=== PATIENT | female | born 1945 | race Caucasian/White ===

== ENCOUNTER 2017-07-24 01:56 | Inpatient (IN) | payer OTHER, MEDICARE ==
[~2017-07-24] VITALS: Ht 157.5 cm; Wt 85.7 kg
[2017-07-24] VITALS (10 sets, daily range): BP systolic 130–157; BP diastolic 68–80; PULSE 75–88; RESP 16–20; O2SAT 96–97
[~2017-07-24 01:56] MED LIST: ASPI325T32 PO; FLUT15.88 NS; LISI-571 PO; METF1000 PO; METO50TA3 PO
--- NOTE | 2017-07-24 02:02 | ED.REPORT ---
HPI-Abd Pain F 40 and Over Date of Service Jul 24, 2017 ED Provider: Anderson Chapman MD A 71 year old female with a history of diverticulitis, hypertension, diabetes and anxiety presents to the ED complaining of abdominal pain. The pain began this evening while the pt was resting, and is localized in the left lower abdomen. This is accompanied by nausea and diarrhea, though the pt denies fever. The pt believes that her symptoms may be related to diverticulitis. Nursing Notes Stated Complaint: STOMACH PAIN Nursing Notes Reviewed: Yes Scheduled Aspirin (Aspirin) 325 Mg Tablet 325 MG PO DAILY Lisinopril (Lisinopril) 5 Mg Tablet 5 MG PO DAILY Metformin (Glucophage) 1,000 Mg Tablet 1,000 MG PO BID Metoprolol Tartrate (Metoprolol Tartrate) 50 Mg Tablet 25 MG PO BID Miscellaneous Medications Fluticasone Propionate (Fluticasone Propionate) 50 Mcg/Actuation Harris.susp 15.8 ML NS General Time Seen by MD: 02:01 Chief Complaint Abdominal pain Hx Obtained From: Patient Arrived By: Walk-in Sudden in Onset?: Yes Onset Occurred: 5 - 8 hours ago Symptom Duration: Since onset Recent Healthcare: No recent hospitalization, Recent doctor visit Similar Sx Previous: Yes Past Medical History Past Medical History cataracts hypertension diverticulitis diabetes anxiety Past Surgical History none reported Smoking History Smoker Current Status UNK Social History Alcohol Use: Denies alcohol use Drug Use: Denies drug use Other Social History: Good social support, Ambulatory Status Independent Review of Systems Constitutional: Denies: Fever Respiratory: Denies: Non-productive cough, Shortness of breath Cardiovascular: Denies: Chest pain GI: Reports: Abdominal pain, Diarrhea, Nausea Musculoskeletal: Denies: Back pain, Neck pain Complete sys rev & neg: except as marked. Physical Exam Vital Signs Vital Signs (First) Date Time Temp Pulse Resp B/P Pulse Ox O2 Delivery O2 Flow Rate FiO2 07/24/17 02:07 37.4 87 20 152/74 97 Room Air Initial VS: Reviewed General/Constitutional: Awake, Alert Respiratory / Chest: Atraumatic, Breath sounds NL, Breath sounds = bilat, No respiratory distress Cardiovascular: Heart rate NL, Regular rhythm, Heart sounds NL Abdomen: Atraumatic, Soft tender LLQ Back: Atraumatic, Full range of motion Head / Eyes: Atraumatic, Normocephalic, PERRL, EOMI ENT: Atraumatic, Airway patent, Mucous membranes moist, Pharynx NL Skin: Atraumatic, Color NL, No rash, Warm, Dry Neurologic: Oriented X3, Speech NL, No motor deficits, No sensory deficits Neck: Atraumatic, Supple, Full range of motion Upper Extremity / MS: Atraumatic, Full range of motion Lower Extremity / Pelvis / MS: Atraumatic, Full range of motion Psychiatric: Affect NL, Mood NL Interpretation & Diagnostics Lab Results Interpretation Result Diagram: 07/24/17 0231 07/24/17 0231 Test 07/24/17 02:31 07/24/17 05:25 White Blood Count 10.1th/mm3 (3.8-10.1) Red Blood Count 4.19mil/mm3 (3.90-5.20) Hemoglobin 11.2g/dL (12.0-15.6) Hematocrit 35.5% (35.0-46.0) Mean Corpuscular Volume 84.7fL (81-100) Mean Corpuscular Hemoglobin 26.7pg (27.0-35.0) Mean Corpuscular Hemoglobin Concent 31.5% (32.0-37.0) Red Cell Distribution Width 15.2% (12.3-15.4) Platelet Count 181bil/L (150-400) Neutrophils (%) (Auto) 82.4% (40-74) Lymphocytes (%) (Auto) 9.2% (14-46) Monocytes (%) (Auto) 6.5% (4-12) Eosinophils (%) (Auto) 1.5% (0-5) Basophils (%) (Auto) 0.1% (0-3) Prothrombin Time 10.3sec (8.1-12.5) Prothromb Time International Ratio 0.96ratio Sodium Level 137mEq/L (134-144) Potassium Level 4.0mEq/L (3.5-5.2) Chloride Level 100mEq/L (97-108) Carbon Dioxide Level 21mmol/L (18-29) Blood Urea Nitrogen 13mg/dL (8-27) Creatinine 0.65mg/dL (0.57-1.00) Estimat Glomerular Filtration Rate 129mL/min (>59) Glucose Level 160mg/dL (60-99) Calcium Level 8.9mg/dL (8.5-10.1) Magnesium Level 1.9mg/dL (1.6-2.6) Total Bilirubin 0.7mg/dL (0.0-1.2) Aspartate Amino Transf (AST/SGOT) 15U/L (0-50) Alanine Aminotransferase (ALT/SGPT) 9U/L (0-32) Alkaline Phosphatase 70U/L (25-165) Total Protein 7.1g/dL (6.4-8.4) Albumin 4.2g/dL (3.4-5.0) Lipase 25U/L (13-60) Urine Color Yellow (YELLOW) Urine Appearance Clear (CLEAR,HAZY) Urine pH 5.0 (5.0-8.0) Urine Specific [place] <1.005 (1.003-1.035) Urine Protein Negativemg/dL (NEG,TRACE) Urine Glucose (UA) Negativemg/dL (NEGATIVE) Urine Ketones Negativemg/dL (NEGATIVE) Urine Occult Blood Trace (NEGATIVE) Urine Nitrite Negative (NEGATIVE) Urine Bilirubin Negative (NEGATIVE) Urine Urobilinogen Normalmg/dL (NORMAL) Urine Leukocyte Esterase Negative (NEGATIVE) Urine RBC 0-2/hpf (0-2) Urine WBC 0-5/hpf (0-5) Urine Epithelial Cells Few/hpf (NONE-MOD) Urine Crystals None seen (NONE SEEN) Urine Bacteria Few/hpf (NONE-FEW) Urine Hyaline Casts None/lpf (NONE) Urine Granular Casts None seen (NONE SEEN) Urine Waxy Casts None seen (NONE SEEN) Urine Red Blood Cell Casts None seen (NONE SEEN) Urine White Blood Cell Casts None seen (NONE SEEN) Urine Mucus None seen (None Seen) Urine Trichomonas None seen (NONE SEEN) Urine Yeast None (NONE SEEN) Urinalysis Comment None Urine Culture Reflexed Not indicated CT Abd / Pelvis Interpretation IMPRESSION: Acute sigmoid diverticulitis. No gross free air or loculated fluid collection/mature abscess. Follow-up recommended to ensure resolution and exclude underlying neoplasm. Other findings above. Interpretation / Wet Read by: Interpret - Radiologist Re-Eval/Medical Decision Med Decision/Clinical Course 8-year-old presents with diverticulitis correctly assessed by her his diverticulitis based on its similarity to prior occurrences. Antecedent diarrhea but no other significant symptoms. CT scanning shows fluid, one small bubble that may represent a microperforation, and stranding all consistent with diverticulitis and sigmoid colon. Begun with Levaquin and metronidazole IV. Admitted now for ongoing antibiotics and observation. Source of Hx: Old records Re-Evaluation/Progress : Time of Eval: 04:25 Patient Status: Condition improved Re-Evaluation/Progress Note: Pt rechecked, who is comfortable. The diagnosis and plan for admission are discussed. The pt understands and agrees with the plan. All questions are addressed at this time. Consultation : Referral / Consult Name: Michell Cruz DO Consulted With: Hospitalist Call Returned at: 04:34 Order Editor: Agrees with eval, Agrees with plan, Accepts admit Note: Spoke with Dr. Cruz, hospitalist, regarding pt's case. Dr. Cruz agrees with the evaluation and agrees to admit the pt. Counseled Regarding: Diagnosis, Lab results, Need for admission Discharge & Departure Primary Impression: Sigmoid diverticulitis Disposition: ADMITTED TO HOSPITAL Discharge Condition All VS Reviewed: Yes Condition: Stable Referrals: Belkys Muniz (PCP) Scribe Attestation Portions of this note were transcribed by Kaylah Osuna. I, Dr. Chapman personally performed the history, physical exam and medical decision-making; I reviewed and confirmed the accuracy of the information in the transcribed note. copies to: Belkys Muniz Christopher W MD Jul 24, 2017 02:02 KAYLAH OSUNA Jul 24, 2017 02:28
[2017-07-24] MEDS ORDERED: 0.9% Sodium Chloride 1,000 ML IV ONE (02:26)
[2017-07-24] MEDS ORDERED: Ketorolac 15 mg/mL Inj IVPUSH ONE (02:30)
[2017-07-24] MEDS ORDERED: HYDROmorphone 1 mg/mL Inj IVPUSH PRN (02:30)
[2017-07-24] MEDS ORDERED: Ondansetron 2 mg/mL 2 mL Inj IVPUSH ONE (02:30)
[2017-07-24 02:39] LABS: BASOPHILS % (AUTO) 0.1 % (0-3); EOSINOPHILS % (AUTO) 1.5 % (0-5); MONOCYTES % (AUTO) 6.5 % (4-12); Mean Corpuscular Hemoglobin 26.7 pg (27.0-35.0); Mean Corpuscular Volume 84.7 fL (81-100); NEUTROPHILS % (AUTO) 82.4 % (40-74); Platelet Count 181 bil/L (150-400)
[2017-07-24 03:02] LABS: INR 0.96 ratio
[2017-07-24 03:13] LABS: Magnesium 1.9 mg/dL (1.6-2.6)
[2017-07-24] MEDS ORDERED: levoFLOXacin Inj 750 MG in IV Premix 1 EACH IV ONE (04:05)
[2017-07-24] MEDS ORDERED: metroNIDAZOLE Inj 1,000 MG in IV Premix 1 EACH IV ONE (04:05)
[2017-07-24] MEDS ORDERED: Alum-Mag Hydrox-Simeth 30 mL Suspension PO PRN (04:40)
[2017-07-24] MEDS ORDERED: Polyethylene Glycol (PEG) 17 Gm Powder PO PRN (04:40)
--- NOTE | 2017-07-24 05:26 | PCM.HPMED ---
Subjective Date of Service Jul 24, 2017 Primary Provider: Admitting Physician: Primary Care Physician: Belkys Muniz Attending Physician: Admit Status: From the Emergency Department, Remote Telemetry Chief Complaint: Left lower quadrant abdominal pain with associated diarrhea and nausea History of Present Illness: Mrs. Ellis is extremely pleasant 71-year-old woman with history of non-insulin- dependent using diabetes mellitus, hypertension, mitral valve prolapse status post repair, history of diverticulitis, that presented to the emergency department with a new onset of left lower quadrant abdominal pain, with associated nausea, and diarrhea. Initial evaluation in the emergency department included CT imaging which revealed acute sigmoid diverticulitis without any gross free air or loculated fluid collection or mature abscesses. Patient was properly treated with IV antibiotics, patient is admitted for continued evaluation and treatment of acute diverticulitis. - Hospital day 1 Patient states that left lower quadrant pain, described as sharp and constant, began approximately 9 PM the day prior to admission. She believes the etiology of her underlying pain may be related to a [place] dish she had for dinner. She also attributes some associated nausea and diarrheal episodes. She states 3 episodes of diarrhea, which she utilized [id number] antidiarrheal medicines for each episode. She denies any associated fever, chills, acute vision changes, headaches, emesis. Denies noting any blood within her stools, but patient admits that she was not closely observing her output. She also notes a dry mouth since development of her diarrhea and left lower quadrant pain. In the emergency department, T 37.4, pulse 87, respiratory rate 20, blood pressure 152/74, 97% on room air; initial labs revealed white count 10.1 with 82.4% neutrophils, hemoglobin 11.2, hematocrit 35.5, platelet count 181; electrolytes within range, LFTs within range, lipase 25. CT of the abdomen and pelvis was completed, which revealed acute sigmoid diverticulitis without any gross free air or loculated fluid collections or mature abscesses. Dr. Rivera of general surgery was attending to another patient in the emergency department and recommended consultation in morning for this woman. Initial therapies included 1 L normal saline, Toradol 15 mg IV push 1, Flagyl 1 g, and Levaquin 750 mg. Patient was transported to medical floor in stable condition. Review of Systems: Complete review of systems obtained, pertinent positives and negatives as noted in history of present illness Home Medications Obtained from outpatient documentation dated 07/03/2017 Celia Ellis. [id number] 1945 07/03/2017 10:00 AM 11/30 Start Date Medication Directions 06/14/2014 aspirin 325 mg tablet,delayed release take 1 tablet by oral route every day 04/18/2016 Contour Test Strips inject by Subcutaneous route three times daily test blood sugar 09/21/2016 fluticasone 50 mcg/actuation nasal spray,suspension PLACE TWO SPRAYS IN EACH NOSTRIL ONCE DAILY NEEDED 03/30/2016 lancets 30 gauge use to test blood sugar twice daily 09/18/2016 lisinopril 5 mg tablet take 1 tablet by oral route every day for heart 04/16/2017 metFORMIN HCL 1,000MG TABLET, UU TAKE ONE TABLET BY MOUTH TWICE A DAY WITH MORNING AND EVENING MEALS 09/18/2016 metoprolol tartrate 50 mg tablet take 0.5 tablet by oral route 2 times every day with meals Patient was able to confirm daily medications of aspirin, blood pressure medication presumed to be lisinopril, metformin, metoprolol PMH Diabetes Dyslipidemia Hypertension Palpitations Cardiac murmur status post mitral valve prolapse with mitral valve repair Diabetes mellitus non-insulin using with polyneuropathy Diverticulitis Vitamin D deficiency Surgical History Tonsillectomy section 2 Adenoidectomy Unilateral oophorectomy Mitral valve repair, open Patient reports intact appendix Family History Patient reports family history of mitral valve disease in brother, coronary artery disease in father, renal insufficiency and mother, congestive heart failure and sister, and cardiac arrest in son Social History Hx Alcohol Use: No Hx Substance Use: No Hx Tobacco Use: No Smoking Status: Never Smoker Living Arrangement: with Family (, local) Exam Vital Signs Vital Sign - Last Date Time Temp Pulse Resp B/P Pulse Ox O2 Delivery O2 Flow Rate FiO2 07/24/17 04:30 88 20 130/77 97 Room Air 07/24/17 02:07 37.4 Exam General: Alert and oriented 3; pleasant woman resting supine in bed in no acute distress HEENT: Atraumatic, normocephalic, sclera anicteric, membranes moist Neck: Full range of motion without pain Cardiac: Regular rate and rhythm at time of examination with II/ systolic murmur Respiratory: Equal and adequate airflow all blandon without any wheeze or rhonchi ; no use of accessory muscles Chest: Atraumatic without any reproducible pain with palpation Abdomen: Soft, obese, mild-moderate tenderness noted left lower quadrant, with mild diffuse abdominal pain Extremities: No edema appreciated Skin: Warm and dry MSK: 5/5 strength 4/4 extremities at major joints of the shoulder, hip Neuro: Cranial nerves II-XII grossly intact, speech without slur, facial expressions equal and symmetric Psych: Appropriate mood, affect, and responses to questions; good insight and judgment Lab and Diagnostics Result Diagram: 07/24/1723007/24/17230 Assessment & Plan Mrs. Ellis is extremely pleasant 71-year-old woman with history of non-insulin- dependent using diabetes mellitus, hypertension, mitral valve prolapse status post repair, history of diverticulitis, that presented to the emergency department with a new onset of left lower quadrant abdominal pain, with associated nausea, and diarrhea. Initial evaluation in the emergency department included CT imaging which revealed acute sigmoid diverticulitis without any gross free air or loculated fluid collection or mature abscesses. Patient was properly treated with IV antibiotics, patient is admitted for continued evaluation and treatment of acute diverticulitis. - Hospital day 1 Acute sigmoid diverticulitis, present on admission, under therapy - Patient complains of left lower quadrant pain similar to previous presentations of diverticulitis episodes - CT obtained in emergency department revealed acute sigmoid diverticulitis without free air or loculated fluid or abscesses - Awaiting final read - Patient without white count or fever on admission - Initial antibiotics included Flagyl and Levaquin, will continue; please note patient has allergy to penicillin - Continue to monitor labs and vitals - Nothing by mouth except sips and chips to provide bowel rest - Patient was not experiencing severe symptoms to indicate placement of NG tube - Gen. surgery consultation in morning, order has been placed - Please verbally contact surgical team to formally consult on this patient Diabetes mellitus, non-insulin using, chronic, presumed stable - We will hold metformin - Institution of low-dose correctional scale Hypertension, chronic, presumed stable - We will resume home medications including lisinopril and metoprolol when med rec completed pending stability of blood pressure Mitral valve regurgitation status post open repair, chronic, presumed stable - No interventions at this time; followed by [facility] cardiology Med rec not uploaded or completed at time of admission PRN fever, bowel, nausea, pain DVT: Hep q8 Diet: NPO exc sips at this time to promote bowel rest GI: H2B IVF: NS 100 Code: FULL CODE Patient status: Patient is admitted under inpatient status with expected length of stay greater than 2 midnights due to severity of presenting symptoms, risk of adverse event, and complexity of treatment plan. Pain Evaluation: Adequate Pain Control GI Prophylaxis: H2 edgardo VTE Prophylaxis: Sub-Q Heparin (Unfractionated) Resuscitation Status: CPR: Attempt Resuscitation Attending Statement The patient was seen and examined together with house staff on 07/24/2017 and I agree with the history, exam and plan as outlined in the note above. copies to: Belkys Muniz Lindsay R DO Jul 24, 2017 05:26 Michell Cruz DO Jul 24, 2017 06:19
[2017-07-24] MEDS ORDERED: Glucose 40% Oral Gel 15 Gm Tube PO PRN (05:45)
[2017-07-24] MEDS ORDERED: Dextrose 10% 250 ML IV PRN (05:50)
[2017-07-24 05:52] LABS: APPEARANCE,URINE CLEAR (CLEAR,HAZY); COLOR,URINE YELLOW (YELLOW); OCCULT BLOOD,URINE TRACE (NEGATIVE); UROBILINOGEN,URINE NORMAL (NORMAL)
[2017-07-24] MEDS: 0.9% Sodium Chloride 1,000 ML IV SCH ×2 (06:16→17:02)
--- NOTE | 2017-07-24 06:32 | NUR ---
ADMIT Report received from Elidia in ED. Pt arrived in room 1012 at 0541 via gurney. Pt scooted self from gurney to bed with minimal assistance. Per RN, bag 2/2 of flagyl running in l. AC, positional per pt. Admission complete, med rec complete per pt's memory, though she reports she is a poor historian. Pt recommends faxing PCP office for complete list.
[2017-07-24] MEDS: Insulin LISPRO 300 Unit/3 mL Inj SUBQ SCH ×4 (08:00→22:00)
[2017-07-24] MEDS: Famotidine Inj 20 MG in IV Premix 1 EACH IV SCH ×2 (08:28→20:17)
[2017-07-24] MEDS: Heparin 5,000 Unit/mL Inj SUBQ SCH ×2 (08:29→17:09)
[2017-07-24] MEDS: Ondansetron 2 mg/mL 2 mL Inj IVPUSH PRN (08:31)
--- NOTE | 2017-07-24 09:05 | DRSVH ---
PROCEDURE: CT ABDOMEN AND PELVIS WITH CONTRAST ([id number]) INDICATIONS: llq pain TECHNIQUE: After the administration of intravenous contrast, 5 mm thick sections acquired from the diaphragm to the symphysis. 5 mm coronal and sagittal reformats were acquired. For radiation dose reduction, the following was used: automated exposure control, adjustment of mA and/or kV according to patient siz e. COMPARISON: [facility] [place] , CT, ABD/PELVIS W/CON ([facility]), 05/21/2011, 10:48. FINDINGS: Image quality: Excellent. ABDOMEN: Lung bases: Lung bases are clear. Heart size is normal. Solid organs: Liver and spleen are normal in size and enhancement. Gallbladder demonstrates minimal dependent hyperdensity is noted without wall thickening. Biliary system is non dilated. Pancreas e nhances normally. No adrenal nodules. Kidneys demonstrate normal size and enhancement, without hydr onephrosis. Renal cysts are noted. Peritoneum and bowel: Bowel loops are nonobstructed. There is significant thickening within the desc ending and sigmoid colon with associated inflammatory change. No free air is identified. No abscess. There are scattered sub-centimeters lymph nodes adjacent to the inflamed colon, suspected to be react ionary in nature. Nodes and vessels: No retroperitoneal or mesenteric adenopathy by size criteria. Aorta and inferior vena cava are normal in size. Miscellaneous: No ventral hernias. PELVIS: Genitourinary: Bladder wall thickness is normal. Miscellaneous: No inguinal hernias or adenopathy. Bones: No suspicious bony lesions. No vertebral body compression fractures. L2 hemangioma is noted . IMPRESSION: 1. Significant descending and sigmoid colonic thickening with inflammatory change and diverticula. Ov erall appearance is most suggestive of colitis secondary to diverticulitis. However, recommend interv al followup after appropriate therapy to document resolution and exclude presence of underlying mass lesion. Dictated by: Mary Jo Delacruz M.D. on 07/24/2017 at 8:53 Approved by: Mary Jo Delacruz M.D. on 07/24/2017 at 9:04
[2017-07-24] MEDS ORDERED: LOPE2CAP PO (10:51)
[2017-07-24] MEDS: metroNIDAZOLE Inj 500 MG in IV Premix 1 EACH IV SCH ×2 (13:06→22:11)
--- NOTE | 2017-07-24 16:23 | PCM.PNMED ---
Subjective Date of Service Jul 24, 2017 Subjective Patient is in the chair, complaining of lower abdominal pain, intermittent loose bowel movements. Pain is improving. Exam Vital Signs Vital Sign - Last Date Time Temp Pulse Resp B/P Pulse Ox O2 Delivery O2 Flow Rate FiO2 07/24/17 12:15 36.4 77 16 139/77 96 Room Air Exam PHYSICAL EXAM: GENERAL: Alert, not in distress, cooperative HEAD: atraumatic, normocephalic, no bruises. EYES: PRIETO, EOMI, anicteric, able to fully open and close eyelids SKIN: Skin color normal, turgor normal. No visible rashes or lesions. EAR, NOSE, MOUTH, THROAT: Lips, oral mucosa, tongue gums, oropharynx are moist , pink, no lesions. Ears normal appearance, no lesions. NECK: no jugulovenous distention, no carotid bruits, carotid pulse normal contour, No carotid bruit, no enlarged lymph nodes appreciated; supple ROM normal. RESPIRATORY: Lungs clear to auscultation. Good diaphragmatic excursion. Normal percussion sound. CARDIAC: normal S1 and S2; no rubs, murmurs, or gallops; regular rate and rhythm ABDOMEN: Abdomen soft, tender. BS normal. No masses or organomegaly. MUSCULOSKELETAL: ROM full, muscles are not tender EXTREMITIES: no pitting edema in LE, no new deformities or skin discoloration. NEURO: Alert, oriented X 3, Sensation grossly intact., Cranial nerves II-XII intact, Grossly normal motor function. PULSES: 2+ radial, 2+ carotid REVIEW OF SYSTEMS: GENERAL: no malaise, no fevers., SEE HPI HEENT: Negative for frequent or significant headaches All other reviewed and negative other than HPI. IVs and Medications Medications Reviewed: Medications were reviewed in detail Lab and Diagnostics Result Diagram: 07/24/17 0231 07/24/17 0231 X-Rays, CTs and MRIs CT abdomen 1. Significant descending and sigmoid colonic thickening with inflammatory change and diverticula. Overall appearance is most suggestive of colitis secondary to diverticulitis. However, recommend interval followup after appropriate therapy to document resolution and exclude presence of underlying mass lesion. Assessment & Plan Mrs. Ellis is extremely pleasant 71-year-old woman with history of non-insulin- dependent using diabetes mellitus, hypertension, mitral valve prolapse status post repair, history of diverticulitis, that presented to the emergency department with a new onset of left lower quadrant abdominal pain, with associated nausea, and diarrhea. Initial evaluation in the emergency department included CT imaging which revealed acute sigmoid diverticulitis without any gross free air or loculated fluid collection or mature abscesses. Patient was properly treated with IV antibiotics, patient is admitted for continued evaluation and treatment of acute diverticulitis. Acute sigmoid diverticulitis, present on admission, under therapy - Improving - CT showed acute diverticulitis - Continue with current antibiotics Diabetes mellitus - stable - ISS, Accu-Cheks, Hypertension, - stable - c/w home meds Mitral valve regurgitation status post open repair, chronic, presumed stable - stable,followed by [facility] cardiology PRN fever, bowel, nausea, pain DVT: Heparin Diet: NPO exc sips at this time to promote bowel rest GI: H2B IVF: NS 100 Code: FULL CODE GI Prophylaxis: H2 edgardo VTE Prophylaxis: Sub-Q Heparin (Unfractionated) VTE Mechanical Devices: Intermittant Pneumatic CD Resuscitation Status: CPR: Attempt Resuscitation Benoit Umaña MD Jul 24, 2017 16:23
--- NOTE | 2017-07-24 16:51 | NUR ---
Social Work: Initial Assessment/Multidisciplinary Rounds D: EMR reviewed. Please see Initial Assessment linked to this note for more information. Pt is a 71 year old female admitted [place] for acute diverticulitis per H&P. Pt's insurance is [facility]. Pt screens in for an assessment due to age. PCP is DAISY Cunningham. Pt discussed in multidisciplinary rounds, no social work needs identified. SW will continue to follow. SW met with pt and at bedside to conduct initial assessment. Pt was alert and oriented x3. Pt is very hard of hearing and pt's assisted with answering assessment questions. Pt's capacity for self-care assessed. SW explained role and wrote phone number on [employer] board. SW provided [facility] Discharge Planning Checklist and encouraged pt to contact SW for any discharge planning questions. Pt lives at home with her spouse in [place]. Pt is independent with all ADLs. Pt uses no DME at baseline but has a cane and walker available for use. Pt does not drive. Pt has no HH or SNF history, no LTC or VA benefits. Pt has no DPOA on file, pt reports that her would be DPOA if needed. Pt's to provide transportation home at d/c. SW will continue to follow for d/c planning needs. A: Pt who is independent at baseline and has the capacity for self-care. P: Pt anticipated to discharge home with to transport via POV. No SW needs identified, no MD orders received at this time. SW will continue to follow for needs until time of discharge. BECCA Munoz Addendum: 07/24/17 at 1655 by KAYLA CORTEZ Amended: Links added.
--- NOTE | 2017-07-24 17:33 | NUR ---
Case Management: IMM explained to patient and family member at 1525, all questions answered. Signed original placed in chart, copy given to patient. Alena Gardner RN
--- NOTE | 2017-07-24 18:48 | NUR ---
Shift Note Patient diet changed to clear liquids as tolerated to rest bowels. Antibiotics administered as ordered. Patient anxious about getting Heparin, educated on need for prevention of DVT and reassured patient that it doesn't stay in her system very long. Patient agreeable. Patient complains of headache after dinner, dimmed lights offered Tylenol, patient preferred ice pack. Will continue to monitor.
[2017-07-25] VITALS (8 sets, daily range): BP systolic 136–149; BP diastolic 70–82; PULSE 70–76; RESP 16–22; O2SAT 93–96
[2017-07-25] MEDS: Heparin 5,000 Unit/mL Inj SUBQ SCH ×3 (01:16→17:25)
[2017-07-25] MEDS: 0.9% Sodium Chloride 1,000 ML IV SCH ×3 (04:19→21:45)
[2017-07-25] MEDS: levoFLOXacin Inj 750 MG in IV Premix 1 EACH IV SCH (04:23)
[2017-07-25] MEDS: metroNIDAZOLE Inj 500 MG in IV Premix 1 EACH IV SCH ×3 (06:37→22:57)
[2017-07-25] MEDS: Ondansetron 2 mg/mL 2 mL Inj IVPUSH PRN (06:42)
[2017-07-25] MEDS: Insulin LISPRO 300 Unit/3 mL Inj SUBQ SCH ×4 (08:00→22:00)
[2017-07-25] MEDS: Famotidine Inj 20 MG in IV Premix 1 EACH IV SCH ×2 (08:44→21:36)
--- NOTE | 2017-07-25 10:40 | PCM.PNMED ---
Subjective Date of Service Jul 25, 2017 Subjective Patient is complaining of lower abdominal pain. She is able to tolerate a liquid diet. Her stomach is quite painful to palpation. CT scan showed severe diverticulitis. Patient is an IV antibiotics. We will advance her diet today and see if she is able to tolerate it. Probably will be able to discharge her home on oral antibiotics tomorrow Exam Vital Signs Vital Sign - Last Date Time Temp Pulse Resp B/P Pulse Ox O2 Delivery O2 Flow Rate FiO2 07/25/17 07:54 36.7 73 20 136/73 95 Room Air Intake and Output 07/24/17 07/24/17 07/25/17 Cumulative From/Thru 15:00 23:00 07:00 07/24/17 02:07 - 07/24/17 17:41 Intake Total 0 ml 720 ml 720 ml Output Total 0 ml 800 ml 800 ml Balance 0 ml -80 ml -80 ml Intake Oral 0 ml 720 ml 720 ml Output Urine Total 0 ml 800 ml 800 ml # Voids 3 3 # Bowel Movements 0 0 Exam PHYSICAL EXAM: GENERAL: Alert, not in distress HEAD: atraumatic, normocephalic, no bruises. EYES:EOMI, anicteric, able to fully open and close eyelids SKIN: Skin color normal, turgor normal. No visible rashes or lesions. EAR, NOSE, MOUTH, THROAT: Lips, oral mucosa, tongue are moist, pink, no lesions. NECK: no jugulovenous distention, no carotid bruits, carotid pulse normal contour, No carotid bruit, no enlarged lymph nodes appreciated; supple ROM normal. RESPIRATORY: Lungs clear to auscultation. Good diaphragmatic excursion. Normal percussion sound. CARDIAC: normal S1 and S2; no rubs, murmurs, or gallops; regular rate and rhythm ABDOMEN: Abdomen soft, tender to palpation in lower abdomen. BS normal. No masses or organomegaly. MUSCULOSKELETAL: ROM full, muscles are not tender EXTREMITIES: no pitting edema in LE, no new deformities or skin discoloration. NEURO: Alert, oriented X 3, Sensation grossly intact., Cranial nerves II-XII intact, Grossly normal motor function. PULSES: 2+ radial, 2+ carotid REVIEW OF SYSTEMS: GENERAL: + malaise, no fevers., SEE HPI HEENT: Negative for frequent or significant headaches All other reviewed and negative other than HPI. IVs and Medications Medications Reviewed: Medications were reviewed in detail Lab and Diagnostics Result Diagram: 07/24/17 02307/24/17 0231 X-Rays, CTs and MRIs CT abdomen 1. Significant descending and sigmoid colonic thickening with inflammatory change and diverticula. Overall appearance is most suggestive of colitis secondary to diverticulitis. However, recommend interval followup after appropriate therapy to document resolution and exclude presence of underlying mass lesion. Assessment & Plan Mrs. Ellis is extremely pleasant 71-year-old woman with history of non-insulin- dependent using diabetes mellitus, hypertension, mitral valve prolapse status post repair, history of diverticulitis, that presented to the emergency department with a new onset of left lower quadrant abdominal pain, with associated nausea, and diarrhea. Initial evaluation in the emergency department included CT imaging which revealed acute sigmoid diverticulitis without any gross free air or loculated fluid collection or mature abscesses. Patient was properly treated with IV antibiotics, patient is admitted for continued evaluation and treatment of acute diverticulitis. Acute sigmoid diverticulitis, present on admission, under therapy - Improving - CT showed quite severe acute diverticulitis - Continue with IV antibiotics, IVF - IV and by mouth pain medications - Advance diet to full liquid - Monitor Diabetes mellitus - stable - ISS, Accu-Cheks, Hypertension, - stable - c/w home meds Mitral valve regurgitation status post open repair, chronic, presumed stable - stable,followed by [facility]ology PRN fever, bowel, nausea, pain DVT: Heparin Diet: NPO exc sips at this time to promote bowel rest GI: H2B IVF: NS 100 Code: FULL CODE Plan of care, medication side effects, home medication, diagnostic procedures and available alternatives were discussed and reviewed with patient/family . All questions answered. Patient/family verbalized understanding, approved and agreed to plan of care. GI Prophylaxis: H2 edgardo VTE Prophylaxis: Sub-Q Heparin (Unfractionated) VTE Mechanical Devices: Intermittant Pneumatic CD Resuscitation Status: CPR: Attempt Resuscitation Benoit Umaña MD Jul 25, 2017 10:40
--- NOTE | 2017-07-25 16:36 | NUR ---
Social Work- Readiness for Discharge Data: EMR reviewed. Pt is on day 1 of [place] hospitalization. Pt discussed in multidisciplinary rounds. Pt is not medically ready for d/c. Anticipate tomorrow or Saturday. Pt has been independent in room. Pt's diet to be advanced prior to d/c. No SW needs identified in rounds. Pt to d/c home with her spouse to transport via POV. SW will continue to follow. Assessment: Pt who is independent at baseline. Plan: No SW needs identified in rounds. Pt to d/c home with her spouse to transport via POV. SW will continue to follow. Laurie Prasad MSW
--- NOTE | 2017-07-25 18:22 | NUR ---
Activity/GI Pt up and down to BR independently; up and down from chair to bed. A&Ox3, PATEL. Pt without BM since [employer], Offered stool softeners. Pt encouraged to ambulated. Pt stated that hot chocolate and ice cream usually help with BM. Stated maybe tomorrow would be accepting of stool softeners if no success overnight. Stated she wants to get up and walk but her robe is at home. Offered hospital robe to her. Pt tolerating full liquid diet, denies pain, states flatus but no BM. Care continues
[2017-07-26] MEDS: Heparin 5,000 Unit/mL Inj SUBQ SCH ×2 (00:24→08:18)
[2017-07-26 01:01] VITALS: BP 157/83; PULSE 76; RESP 18; O2SAT 96
--- NOTE | 2017-07-26 01:56 | NUR ---
activity Patient ambulating independently with minimal SBA. Tolerating well, had a lrg BM this shift. c/o bilateral LE neuropathy, requests ice for comfort. Bed in low position, call light within reach, intentional rounding.
[2017-07-26 05:15] VITALS: BP 133/65; PULSE 87; RESP 20; O2SAT 95
[2017-07-26] MEDS: levoFLOXacin Inj 750 MG in IV Premix 1 EACH IV SCH (05:34)
[2017-07-26] MEDS: metroNIDAZOLE Inj 500 MG in IV Premix 1 EACH IV SCH (07:00)
[2017-07-26] MEDS: 0.9% Sodium Chloride 1,000 ML IV SCH (07:45)
[2017-07-26] MEDS: Insulin LISPRO 300 Unit/3 mL Inj SUBQ SCH (08:17)
[2017-07-26] MEDS: Famotidine Inj 20 MG in IV Premix 1 EACH IV SCH (08:30)
[2017-07-26] MEDS ORDERED: METR500T PO (10:34)
[2017-07-26] MEDS ORDERED: LEVO750T9 PO (10:34)
--- NOTE | 2017-07-26 11:39 | NUR ---
Discharge Patient DC to home with spouse. All DC education given to patient and spouse including new and current medications, follow up and nutritional plan, and how to monitor symptoms. VSS at time of DC. IV access DC'd intact with not s/s of infection. Patient and spouse verbalize understanding of plan and DC instructions.
--- NOTE | 2017-07-26 11:54 | NUR ---
Social Work: Discharge/Multidisciplinary Rounds D: EMR reviewed. Pt is on day 2 of hospitalization. Pt discussed in multidisciplinary rounds and is medically stable for discharge home today. No SW needs identified in multidisciplinary rounds, no MD orders received. A: Pt who is independent at baseline P: Pt to discharge home with spouse to transport today. No SW needs identified in multidisciplinary rounds, no MD orders received. BECCA Hodge
--- NOTE | 2017-07-26 13:49 | PCM.DC.MED ---
Discharge Summary Date of Service Jul 26, 2017 Dates of Hospitalization Date of Hospital Admission Jul 24, 2017 at 05:29 Date of Discharge: Jul 26, 2017 Providers: Admitting Physician: Michell Cruz DO Primary Care Physician: Belkys Muniz Attending Physician: Benoit Umaña MD Procedures XRay, CTs & MRIs CT abdomen 1. Significant descending and sigmoid colonic thickening with inflammatory change and diverticula. Overall appearance is most suggestive of colitis secondary to diverticulitis. However, recommend interval followup after appropriate therapy to document resolution and exclude presence of underlying mass lesion. Brief History Mrs. Ellis is pleasant 71-year-old woman with history of non-insulin- dependent using diabetes mellitus, hypertension, mitral valve prolapse status post repair, history of diverticulitis, that presented to the emergency department with a new onset of left lower quadrant abdominal pain, with associated nausea, and diarrhea. Initial evaluation in the emergency department included CT imaging which revealed acute sigmoid diverticulitis without any gross free air or loculated fluid collection or mature abscesses. Patient was properly treated with IV antibiotics, patient is admitted for continued evaluation and treatment of acute diverticulitis. Hospital Course While in the hospital patient was treated with IV Levaquin and Flagyl. Initially she was nothing by mouth, on IV fluids. Later patient was started on liquid diet and was able to tolerate that well. We advanced liquid diet to full liquid and patient was able to tolerate it. On the day of discharge is to discharge her home. She went home on oral Levaquin and Flagyl to complete 2 week therapy. Physical exam: colt was seen and examined on the day of discharge .After patient improved she was discharged SNF with recommendation to follow up with her PCP for further management of her medical problems. Patient Condition @ Discharge: good Discharge Disposition: home Discharge Activity: resume regular activity, patient was advised to avoid heavy physical work or exertion Discharge Diet: regular diet, heart healthy, low fat, low salt Information Provided to Patient: information about discharge medications Discharge Medications: I discussed with patient medication dosage, usage, goals of therapy, side effects, alternatives. During discharge patient was allert, oriented, able to make own informed decisions. We discussed possible severe side effects, adverse reactions, benefits, risks, alternatives of current and newly prescribed medications and diagnostic procedures. Patient verbalized understanding and agreed to current plan of care and discharge. TIME SPENT IN DISCHARGE ACTIVITY: Face to face activity greater then 30 minutes spent in discharge activity. 1. Discussed with patient/ family* re: discharge plan of care/treatment, and follow up care/services. 2. Patient/family agreed with discharge plan and further plan of care, all questions were answered/addressed, no further questions at the time of discharge. Exam Vital Signs (Last) Date Time Temp Pulse Resp B/P Pulse Ox O2 Delivery O2 Flow Rate FiO2 07/26/17 05:15 37.5 87 20 133/65 95 Room Air Test 07/24/17 02:31 07/24/17 05:25 White Blood Count 10.1th/mm3 (3.8-10.1) Red Blood Count 4.19mil/mm3 (3.90-5.20) Hemoglobin 11.2g/dL (12.0-15.6) Hematocrit 35.5% (35.0-46.0) Mean Corpuscular Volume 84.7fL (81-100) Mean Corpuscular Hemoglobin 26.7pg (27.0-35.0) Mean Corpuscular Hemoglobin Concent 31.5% (32.0-37.0) Red Cell Distribution Width 15.2% (12.3-15.4) Platelet Count 181bil/L (150-400) Neutrophils (%) (Auto) 82.4% (40-74) Lymphocytes (%) (Auto) 9.2% (14-46) Monocytes (%) (Auto) 6.5% (4-12) Eosinophils (%) (Auto) 1.5% (0-5) Basophils (%) (Auto) 0.1% (0-3) Prothrombin Time 10.3sec (8.1-12.5) Prothromb Time International Ratio 0.96ratio Sodium Level 137mEq/L (134-144) Potassium Level 4.0mEq/L (3.5-5.2) Chloride Level 100mEq/L (97-108) Carbon Dioxide Level 21mmol/L (18-29) Blood Urea Nitrogen 13mg/dL (8-27) Creatinine 0.65mg/dL (0.57-1.00) Estimat Glomerular Filtration Rate 129mL/min (>59) Glucose Level 160mg/dL (60-99) Calcium Level 8.9mg/dL (8.5-10.1) Magnesium Level 1.9mg/dL (1.6-2.6) Total Bilirubin 0.7mg/dL (0.0-1.2) Aspartate Amino Transf (AST/SGOT) 15U/L (0-50) Alanine Aminotransferase (ALT/SGPT) 9U/L (0-32) Alkaline Phosphatase 70U/L (25-165) Total Protein 7.1g/dL (6.4-8.4) Albumin 4.2g/dL (3.4-5.0) Lipase 25U/L (13-60) Urine Color Yellow (YELLOW) Urine Appearance Clear (CLEAR,HAZY) Urine pH 5.0 (5.0-8.0) Urine Specific [place] <1.005 (1.003-1.035) Urine Protein Negativemg/dL (NEG,TRACE) Urine Glucose (UA) Negativemg/dL (NEGATIVE) Urine Ketones Negativemg/dL (NEGATIVE) Urine Occult Blood Trace (NEGATIVE) Urine Nitrite Negative (NEGATIVE) Urine Bilirubin Negative (NEGATIVE) Urine Urobilinogen Normalmg/dL (NORMAL) Urine Leukocyte Esterase Negative (NEGATIVE) Urine RBC 0-2/hpf (0-2) Urine WBC 0-5/hpf (0-5) Urine Epithelial Cells Few/hpf (NONE-MOD) Urine Crystals None seen (NONE SEEN) Urine Bacteria Few/hpf (NONE-FEW) Urine Hyaline Casts None/lpf (NONE) Urine Granular Casts None seen (NONE SEEN) Urine Waxy Casts None seen (NONE SEEN) Urine Red Blood Cell Casts None seen (NONE SEEN) Urine White Blood Cell Casts None seen (NONE SEEN) Urine Mucus None seen (None Seen) Urine Trichomonas None seen (NONE SEEN) Urine Yeast None (NONE SEEN) Urinalysis Comment None Urine Culture Reflexed Not indicated Discharge Medications Discharge Medications Aspirin (Aspirin) 325 Mg Tablet 325 MG PO DAILY (Reported) Levofloxacin (Levaquin) 750 Mg Tablet 750 MG PO Q24H Start taking it 07/27/17 Prescribed by: YENY ALBERT MD Lisinopril (Lisinopril) 5 Mg Tablet 5 MG PO DAILY (Reported) Metformin (Glucophage) 1,000 Mg Tablet 1,000 MG PO BID (Reported) Metoprolol Tartrate (Metoprolol Tartrate) 50 Mg Tablet 25 MG PO BID (Reported) Metronidazole (Flagyl) 500 Mg Tablet 500 MG PO Q8H start taking 07/26/17 Prescribed by: YENY ALBERT MD As needed Loperamide (Loperamide) 2 Mg Capsule 2 MG PO Q4H PRN PRN For Diarrhea or Loose Stool (Reported) Miscellaneous Medications Fluticasone Propionate (Fluticasone Propionate) 50 Mcg/Actuation [place].susp 15.8 ML NS (Reported) Benoit Umaña MD Jul 26, 2017 13:49
[2017-07-27] MEDS ORDERED: levoFLOXacin 750 mg Tablet PO SCH (05:00)
== END 2017-07-26 11:32 | disposition home or self-care (01) | DRG 392 ==
LOC: SED 01:56 → OSC 05:29
PROVIDERS: ADMIT Internal Medicine; ATTEND Internal Medicine
DX: K57.32 Diverticulitis of large intestine without perforation or abscess without bleeding (principal); Z79.82 Long term (current) use of aspirin; Z79.84 Long term (current) use of oral hypoglycemic drugs; E11.9 Type 2 diabetes mellitus without complications; I10 Essential (primary) hypertension